=== PATIENT | female | born 1990 | race Caucasian/White ===

== ENCOUNTER 2017-01-09 01:08 | Inpatient (IN) | payer OTHER, MEDICAID ==
[2017-01-09] VITALS (77 sets, daily range): BP systolic 88–144; BP diastolic 50–100; PULSE 59–137; RESP 16–20; TEMP 97.5–98.5
[~2017-01-09 01:08] MED LIST: PRENCAP6 PO
[2017-01-09] MEDS ORDERED: LACTATED RINGER'S 1000 ML INJ 1,000 ML IV PRN (01:54)
[2017-01-09] MEDS ORDERED: LACTATED RINGER'S 1000 ML INJ 1,000 ML IV SCH (01:54)
[2017-01-09] MEDS ORDERED: CITRIC ACID-SODIUM CITRATE LIQ 30 ML UDC PO SCH (02:00)
[2017-01-09] MEDS ORDERED: MINERAL OIL 10 ML VIAL TOPICAL PRN (02:00)
[2017-01-09] MEDS ORDERED: LIDOCAINE HCL 1% 50 ML VIAL I-DERMAL PRN (02:00)
[2017-01-09] MEDS ORDERED: SODIUM CHLORID 0.9% 500 ML INJ 500 ML IV PRN (02:00)
[2017-01-09] MEDS ORDERED: ONDANSETRON HCL 4 MG/2 ML VIAL IV PRN (02:00)
[2017-01-09] MEDS ORDERED: OXYTOCIN 30 UNITS-500ML PREMIX 500 ML IV ONE ×2 (02:00→15:15)
[2017-01-09] MEDS ORDERED: LIDOCAINE HCL 1% 50 ML VIAL INFIL PRN (02:00)
[2017-01-09] MEDS ORDERED: SODIUM CHLOR 0.9% 1000 ML INJ 1,000 ML IV PRN (02:14)
[2017-01-09 03:00] LABS: BASOPHIL % 0.3 % (0.0-2.0); EOSINOPHIL # 0.1 TH/MM3 (0-0.4); EOSINOPHIL % 0.9 % (0.0-4.0); HEMATOCRIT 36.1 % (35.0-46.0); HEMO FLAGS DIFF FINAL; LYMPH % 17.1 % (9.0-44.0); LYMPHOCYTE # 1.6 TH/MM3 (1.0-4.8); MEAN CELL VOLUME 94.9 FL (80.0-100.0); MEAN CORPUSCULAR HEMOGLOBIN 33.3 PG (27.0-34.0); MEAN CORPUSCULAR HGB CONC 35.1 % (32.0-36.0); MONO % 7.7 % (0.0-8.0); PLATELET COUNT 155 TH/MM3 (150-450); RED CELL DISTRIBUTION WIDTH 12.7 % (11.6-17.2); WHITE BLOOD COUNT 9.4 TH/MM3 (4.0-11.0)
[2017-01-09 03:09] LABS: BLOOD, URINE SMALL (NEG); COMMENT (UR) CULTURE INDICATED; CULTURE IF INDICATED CULTURE INDICATED; GLUCOSE,URINE NEG (NEG); KETONE, URINE NEG (NEG); MUCUS URINE FEW /lpf (OCC); NITRITE,URINE NEG (NEG); PH, URINE 6.5 (5.0-8.5); SQUAMOUS EPITHELIAL CELL URINE 53 /hpf (0-5); URINE COLOR YELLOW (YELLW/STRAW)
--- NOTE | 2017-01-09 03:51 | HHI.HP ---
HPI Travel History International Travel<30 Days: No Contact w/Intl Traveler<30Days: No Known Affected Area: No History of Present Illness HPI This patient is a 26-year-old 3 para 1011 EDC is January 05 presently at 40 weeks and 4 days she presents with the chief complaint of spontaneous rupture of membranes subsequent onset of contractions care with Dr Mcnally course is significant for a history of low-grade PRINCE with positive HPV baseline blood pressure 118/64 Blood type is O+ rubella immune VDRL is nonreactive urine culture is negative hepatitis is negative HIV negative GC chlamydia negative one-hour Glucola of 58 last hemoglobin 12.2 hematocrit 36.2 History Past Medical History Narrative Medical No known drug allergies No major medical problems Obstetric History Obstetric History May 2015 D&C at 8 weeks for missed Ab September 08, 2014 vaginal delivery 7 lbs. 13 oz. female uncomplicated Past Surgical History Narrative Surgical D&C Family History Narrative Family History Grandfather with heart disease Social History Alcohol Use: No Tobacco Use: No Substance Abuse: No Allergies-Medications (Allergen,Severity, Reaction): Coded Allergies: No Known Allergies (Verified , 01/23/14) Home Meds Reported Medications Mv & Min W/Fe Fumarat ( 1) Cap1 Cap PO DAILY 01/23/14 Review of Systems Gastrointestinal: Abdominal Pain Genitourinary: Other Physical Exam Vital Signs Date Time Temp Pulse Resp B/P Pulse Ox O2 Delivery O2 Flow Rate FiO2 01/09/17 02:30 98.3 18 01/09/17 02:26 72 121/72 Narrative GENERAL: Well-nourished, well-developed patient. Alert oriented 3 and cooperative in no acute distress CARDIOVASCULAR: Regular rate and rhythm without murmurs, gallops, or rubs. RESPIRATORY: Breath sounds equal bilaterally. No accessory muscle use. ABDOMEN/GI: Gravid term estimated weight 7-1/2 pounds Gravid to [-] weeks size term Fundal Height: [-] GENITOURINARY: External Genitalia: intact and normal in appearance BUS glands: [-] Cervix: [-] Posterior soft Dilatation: [-] 3 cm Effacement: [-] 90% effaced Station: [-] -1 station Presentation: [-] Vertex Membranes: ruptured] Uterine Contractions: [-] Every 2-3 minute FHT's: Category: [-] 1 Baseline: [-] 140 Reactive: [-] + Variability: [-] Moderate Decels: [-] 0 EXTREMITIES: No cyanosis or edema. NEUROLOGICAL: Awake and alert. Motor and sensory grossly within normal limits. Five out of 5 muscle strength in all muscle groups. Normal speech. Data Data Vital Signs Reviewed: Yes (blood pressure 121/72 pulse 72 respiration 18 temperature is 98.3) Orders Ob (2e) Additional Admit Info (01/09/17 01:51) Admit To Inpatient (01/09/17 ) Code Status (01/09/17 01:54) Vital Signs (Adult) .Per protocol (01/09/17 01:54) ^ Heart (01/09/17:54) ^ Amnioinfusion (01/09/17 01:54) Urinary Catheter Management .ONCE (01/09/17 01:54) Diet Liquid (01/09/17 Breakfast) Lactated Ringer's 1000 Ml Inj (Lr 1000 M (01/09/17 01:54) Lactated Ringer's 1000 Ml Inj (Lr 1000 M (01/09/17 01:54) Sodium Chlorid 0.9% 500 Ml Inj (Ns 500 M (01/09/17 02:00) Sodium Chlor 0.9% 1000 Ml Inj (Ns 1000 M (01/09/17 02:14) Lidocaine 1% Inj (50 Ml) (Xylocaine 1% I (01/09/17 02:00) Citric Acid-Sodium Citrate Liq (Bicitra (01/09/17 02:00) Ondansetron Inj (Zofran Inj) (01/09/17 02:00) Fentanyl Inj (Fentanyl Inj) (01/09/17 02:00) Fentanyl Inj (Fentanyl Inj) (01/09/17 02:00) Complete Blood Count With Diff (01/09/17 01:54) Hold Clot (01/09/17 01:54) Abo/Rh Blood Type (01/09/17 01:54) Urinalysis - C+S If Indicated (01/09/17 01:54) Resp Oxygen Non Rebreathe Mask (01/09/17 ) ^ Epidural / Intrathecal Infus (01/09/17 01:54) Oxytocin 30 Units-500ml Premix (Pitocin (01/09/17 02:00) Lidocaine 1% Inj (50 Ml) (Xylocaine 1% I (01/09/17 02:00) Light Mineral Oil (Muri-Lube Oil) (01/09/17 02:00) Urine Culture (01/09/17 01:30) Labs Laboratory Tests Test 01/09/17 01/09/17 01:30 02:20 Urine Color YELLOW Urine Turbidity CLOUDY Urine pH 6.5 Urine Specific [place] 1.016 Urine Protein TRACE Urine Glucose (UA) NEG Urine Ketones NEG Urine Occult Blood SMALL Urine Nitrite NEG Urine Bilirubin NEG Urine Urobilinogen LESS THAN 2.0 Urine Leukocyte Esterase LARGE Urine RBC 10 Urine WBC 85 Urine WBC Clumps FEW Urine Squamous Epithelial 53 Cells Urine Mucus FEW Microscopic Urinalysis Comment CULTURE INDICATED White Blood Count 9.4 Red Blood Count 3.80 Hemoglobin 12.7 Hematocrit 36.1 Mean Corpuscular Volume 94.9 Mean Corpuscular Hemoglobin 33.3 Mean Corpuscular Hemoglobin 35.1 Concent Red Cell Distribution Width 12.7 Platelet Count 155 Mean Platelet Volume 10.2 Neutrophils (%) (Auto) 74.0 Lymphocytes (%) (Auto) 17.1 Monocytes (%) (Auto) 7.7 Eosinophils (%) (Auto) 0.9 Basophils (%) (Auto) 0.3 Neutrophils # (Auto) 7.0 Lymphocytes # (Auto) 1.6 Monocytes # (Auto) 0.7 Eosinophils # (Auto) 0.1 Basophils # (Auto) 0.0 CBC Comment DIFF FINAL Differential Comment Date/Time Procedure Status Source Growth 01/09/17 01:30 Urine Culture Received Urine Clean Catch Pending Assessment/Plan Assessment and Plan Intrauterine at 40 weeks and 4 days Postdate Premature rupture membrane Latent phase labor Group B strep negative per patient Plan; admit to Dr Mcnally External monitoring IV fluid hydration CBC type and screen Pain management if patient requires Anticipate vaginal delivery Sophia Valle MD Jan 09, 2017 03:51
[2017-01-09] MEDS ORDERED: OXYTOCIN 30 UNITS/NS 500ML PREMIX IV SCH (05:30)
--- NOTE | 2017-01-09 08:09 | PD.LABORPN ---
Subjective Subjective pt comfortable w/o epidural, on low dose pit 2mu Objective Vital Signs Vital Signs Date Time Temp Pulse Resp B/P Pulse Ox O2 Delivery O2 Flow Rate FiO2 01/09/17 07:54 69 123/69 01/09/17 07:45 16 01/09/17 07:30 77 109/57 01/09/17 07:15 98.5 16 01/09/17 07:00 75 109/68 01/09/17 06:30 91 111/71 01/09/17 06:28 18 01/09/17 06:26 76 117/89 01/09/17 06:22 77 114/68 01/09/17 05:10 91 114/71 01/09/17 05:09 98.0 01/09/17 05:09 18 01/09/17 02:30 98.3 18 01/09/17 02:26 72 121/72 Objective Pelvic Exam: Cervix: [-] Dilatation: [-] 3 Effacement: [-] 90 Station: [-] -1 Presentation: [-] vtx Membranes: [intact or ruptured] arom, clear Uterine Contractions: [-] irreg FHT's: Category: [-] 1 Baseline: [-] Reactive: [-] R Variability: [-] Decels: [-] Assessment/Plan Problem List: (1) state, incidental Assessment and Plan IUP at 40+ wks SROM, AROM on pit 2mu GBBS neg anticipate Lo Lo MD Jan 09, 2017 08:09
[2017-01-09] MEDS ORDERED: ePHEDrine/NS 25 MG/5 ML SYR ONE (11:24)
[2017-01-09] MEDS ORDERED: fentaNYL 2MCG-BUPIV 0.125% INJ 100 ML ONE (11:24)
--- NOTE | 2017-01-09 14:08 | PD.LABORPN ---
Subjective Subjective OBHG Note OB Hospitalist requested to standby for delivery; presented to room as per nurse request. Upon my arrival, bradycardia noted with patient in R lateral position, FSE noting FHR in 40s-60s range. Patient was examined and noted to be C/C/+2, FHR remained bradycardic despite repositioning. Patient verbally consented for VAVD with RBA discussed including but not limited to / injury, intracranial bleeding, scalp hematoma, and need for emergent C/S. Due to prolonged bradycardia the vacuum was applied in insufflated to the green zone; the vacuum was noted to be free of maternal tissues. heart tones were noted to improve after one pull so vacuum device was removed; Dr. Lo arrived to room at this time, was given report about the prolonged bradycardia, and improved FHR and assumed care for the patient. The patient subsequently delivered via a with APGARs 8/9. Objective Vital Signs Vital Signs Date Time Temp Pulse Resp B/P Pulse Ox O2 Delivery O2 Flow Rate FiO2 01/09/17 13:45 137 126/100 01/09/17 13:25 94 01/09/17 13:20 81 01/09/17 13:15 87 108/67 01/09/17 13:15 87 01/09/17 13:10 90 01/09/17 13:05 91 01/09/17 13:00 97.5 18 01/09/17 13:00 84 01/09/17 13:00 92 102/54 01/09/17 12:55 75 01/09/17 12:50 72 01/09/17 12:45 80 01/09/17 12:45 76 92/58 01/09/17 12:40 75 01/09/17 12:35 73 01/09/17 12:32 72 90/50 01/09/17 12:30 75 01/09/17 12:30 83 88/63 01/09/17 12:25 71 01/09/17 12:20 70 01/09/17 12:15 70 01/09/17 12:15 73 117/66 01/09/17 12:10 71 01/09/17 12:05 74 01/09/17 12:00 70 124/69 01/09/17 12:00 71 01/09/17 11:55 63 01/09/17 11:55 69 125/73 01/09/17 11:50 69 123/68 01/09/17 11:50 71 01/09/17 11:45 72 01/09/17 11:45 74 125/77 01/09/17 11:35 70 16 01/09/17 11:30 73 138/92 01/09/17 11:25 64 01/09/17 11:20 69 01/09/17 11:17 68 126/74 01/09/17 11:15 16 01/09/17 11:00 59 116/70 01/09/17 10:45 97.8 16 01/09/17 10:30 61 103/56 01/09/17 10:15 16 01/09/17 10:00 115/70 01/09/17 10:00 70 01/09/17 09:45 16 01/09/17 09:30 70 128/76 01/09/17 09:15 98.5 01/09/17 09:15 16 01/09/17 09:00 74 113/65 01/09/17 08:45 16 01/09/17 08:30 69 117/74 01/09/17 08:15 16 01/09/17 08:00 69 120/53 01/09/17 07:54 69 123/69 01/09/17 07:45 16 01/09/17 07:30 77 109/57 01/09/17 07:15 98.5 16 01/09/17 07:00 75 109/68 01/09/17 06:30 91 111/71 01/09/17 06:28 18 01/09/17 06:26 76 117/89 01/09/17 06:22 77 114/68 Objective Pelvic Exam: Cervix: [-] Dilatation: [-] Effacement: [-] Station: [-] Presentation: [-] Membranes: [intact or ruptured] Uterine Contractions: [-] FHT's: Category: [-] Baseline: [-] Reactive: [-] Variability: [-] Decels: [-] Assessment/Plan Problem List: (1) state, incidental Esthela Phillip MD Jan 09, 2017 14:08
--- NOTE | 2017-01-09 15:01 | PD.OB.DELI ---
Anesthesia: Epidural Episiotomy: None Vaginal Delivery: Normal (1 vacuum pull by hospitalist during deceleration which recovered) Presentation: Occiput anterior Nuchal Cord: x1 : Male Care: Suctioned Placenta: Spontaneous delivery Laceration: No lacerations Lo Lo MD Jan 09, 2017 15:00
[2017-01-09] MEDS ORDERED: ALUMINUM/MAGNESIUM/SIMETH 30 ML CUP PO PRN (15:15)
[2017-01-09] MEDS ORDERED: WITCH HAZEL 50%/GLYCERIN 12.5% 40 PAD JAR TOPICAL PRN (15:15)
[2017-01-09] MEDS ORDERED: ACETAMINOPHEN 325 MG TAB PO PRN (15:15)
[2017-01-09] MEDS ORDERED: SODIUM CHLORIDE 0.9% FLUSH 10 ML FLUSH IV FLUSH PRN (15:15)
[2017-01-09] MEDS ORDERED: ONDANSETRON ODT 4 MG TAB PO PRN (15:15)
[2017-01-09] MEDS ORDERED: DOCUSATE SODIUM 50 MG/SENNA 8.6 MG TAB PO PRN (15:15)
[2017-01-09] MEDS ORDERED: BENZOCAINE 20% TOPICAL SPRAY 60 ML CAN TOPICAL PRN (15:15)
[2017-01-09] MEDS: oxyCODONE/ACETAMINOPHEN 5 MG/325 MG TAB PO PRN (15:33)
[2017-01-09] MEDS: IBUPROFEN 600 MG TAB PO PRN ×2 (15:33→21:33)
[2017-01-09] MEDS ORDERED: DIPHTH/TETANUS/ACEL PERTUSSIS (BOOSTER) 0.5 ML VIAL/PFS IM ONE (16:00)
[2017-01-09] MEDS ORDERED: MEASLES, MUMPS, RUBELLA VACCINE 0.5 ML VIAL SQ ONE (16:00)
[2017-01-09] MEDS ORDERED: SODIUM CHLORIDE 0.9% FLUSH 10 ML FLUSH IV FLUSH SCH (21:00)
[2017-01-09] MEDS ORDERED: ZOLPIDEM TARTRATE 5 MG TAB PO PRN (21:00)
[2017-01-10] MEDS: IBUPROFEN 600 MG TAB PO PRN ×2 (03:44→10:17)
[2017-01-10] MEDS: oxyCODONE/ACETAMINOPHEN 5 MG/325 MG TAB PO PRN ×3 (03:45→15:09)
[2017-01-10 08:20] VITALS: BP 111/72; PULSE 73; RESP 18; TEMP 97.5
--- NOTE | 2017-01-10 09:25 | HHI.OB ---
Subjective Post Day: 1 Remarks no complaints , Objective Vitals/I&O Vital Signs Date Time Temp Pulse Resp B/P Pulse Ox O2 Delivery O2 Flow Rate FiO2 01/09/17 19:18 98.1 84 16 109/69 01/09/17 18:00 18 01/09/17 16:43 20 01/09/17 16:30 65 104/57 01/09/17 16:15 71 109/51 01/09/17 16:10 16 01/09/17 16:00 79 102/55 01/09/17 15:47 16 01/09/17 15:46 80 109/50 01/09/17 15:30 72 111/63 01/09/17 15:25 16 01/09/17 15:15 75 104/59 01/09/17 15:00 85 111/57 01/09/17 14:55 98.5 01/09/17 14:55 16 01/09/17 14:46 131 92/71 01/09/17 14:31 111 126/64 01/09/17 14:30 16 01/09/17 14:16 132 144/65 01/09/17 14:15 100 01/09/17 14:00 16 01/09/17 13:45 137 126/100 01/09/17 13:25 94 01/09/17 13:20 81 01/09/17 13:15 87 108/67 01/09/17 13:15 87 01/09/17 13:10 90 01/09/17 13:05 91 01/09/17 13:00 97.5 18 01/09/17 13:00 84 01/09/17 13:00 92 102/54 01/09/17 12:55 75 01/09/17 12:50 72 01/09/17 12:45 80 01/09/17 12:45 76 92/58 01/09/17 12:40 75 01/09/17 12:35 73 01/09/17 12:32 72 90/50 01/09/17 12:30 75 01/09/17 12:30 83 88/63 01/09/17 12:25 71 01/09/17 12:20 70 01/09/17 12:15 70 01/09/17 12:15 73 117/66 01/09/17 12:10 71 01/09/17 12:05 74 01/09/17 12:00 70 124/69 01/09/17 12:00 71 01/09/17 11:55 63 01/09/17 11:55 69 125/73 01/09/17 11:50 69 123/68 01/09/17 11:50 71 01/09/17 11:45 72 01/09/17 11:45 74 125/77 01/09/17 11:40 67 01/09/17 11:40 77 117/79 01/09/17 11:38 69 107/92 01/09/17 11:35 70 16 01/09/17 11:30 73 138/92 01/09/17 11:25 64 01/09/17 11:20 69 01/09/17 11:17 68 126/74 01/09/17 11:15 16 01/09/17 11:00 59 116/70 01/09/17 10:45 97.8 16 01/09/17 10:30 61 103/56 01/09/17 10:15 16 01/09/17 10:00 115/70 01/09/17 10:00 70 01/09/17 09:45 16 01/09/17 09:30 70 128/76 Objective Remarks GENERAL: Well-nourished, well-developed patient. CARDIOVASCULAR: Regular rate and rhythm without murmurs, gallops, or rubs. RESPIRATORY: Breath sounds equal bilaterally. No accessory muscle use. ABDOMEN/GI: Abdomen soft, non-tender. Fundus: Firm, non-tender at umbilicus. GENITOURINARY: Light to moderate bleeding. EXTREMITIES: No cyanosis or edema, non-tender, without signs of DVT. Medications and IVs Current Medications Medications (Trade) Dose Ordered Sig/Chinedu Route Start Time Stop Time Status Last Admin (NS Flush) 2 ml BID IV FLUSH 01/09/17 21:00 (NS Flush) 2 ml UNSCH PRN IV FLUSH 01/09/17 15:15 (Tylenol) 650 mg Q4H PRN PO 01/09/17 15:15 01/09/17 20:09 (Motrin) 600 mg Q6H PRN PO 01/09/17 15:15 01/10/17 03:44 (Percocet 5-325 Mg) 1 tab Q4H PRN PO 01/09/17 15:15 01/10/17 03:45 (Americaine 20% Top Spr) 1 spray Q4H PRN TOPICAL 01/09/17 15:15 01/09/17 17:52 (Tucks Pads) 1 applic QID PRN TOPICAL 01/09/17 15:15 01/09/17 17:52 (Kelly-Colace) 2 tab Q12H PRN PO 01/09/17 15:15 (Ambien) 5 mg HS PRN PO 01/09/17 21:00 (Mag-Al Plus Susp Liq) 15 ml Q8H PRN PO 01/09/17 15:15 (Zofran Odt) 4 mg Q6H PRN PO 01/09/17 15:15 Assessment/Plan Problem List: (1) state, incidental (2) Vaginal delivery Assessment and Plan Intrauterine at 40 weeks and 4 days s/p PPD#1 doing well Discharge Planning routine Attending Attestation pt seen by Lo Jones MD Jan 10, 2017 09:25
[2017-01-10] MEDS ORDERED: IBUP-232 PO (10:29)
--- NOTE | 2017-01-10 10:30 | HHI.DCPOC ---
Discharge Care Plan Your Health Problems Are: Pelvic pain Report Symptoms to Your Doctor -Temperate above 100.5 degrees -Redness, of incision or excessive or foul smelling drainage -Unusual pain or calf pain -Increased vaginal bleeding -Painful or difficulty urinating -Feelings of extreme sadness or anxiety after 2 weeks Goals to Promote Your Health * To prevent worsening of your condition and complications * To maintain your health at the optimal level Directions to Meet Your Goals Take your medications as prescribed Follow your dietary instruction Follow activity as directed Ensure plenty of rest for recovery Drink fluids for hydration Keep your appointments as scheduled Take your immunizations and boosters as scheduled If your symptoms worsen call your PCP, if no PCP go to Urgent Care Center or Emergency Room Smoking is Dangerous to Your Health. Avoid second hand smoke Call the 24-hour crisis hotline for domestic abuse at Lo Lo MD Jan 10, 2017 10:29
== END 2017-01-10 19:42 | disposition home or self-care (01) | DRG 775 ==
LOC: HOBED 01:08 → H2EA 01:52 → H1EA 17:43
PROVIDERS: ADMIT Obstetrics & Gynecology; ATTEND Obstetrics & Gynecology
PROC: 10D07Z6 Extraction of Products of Conception, Vacuum, Via Natural or Artificial Opening (ICD-10-PCS; principal; 2017-01-09)
PROC: 10E0XZZ Delivery of Products of Conception, External Approach (ICD-10-PCS; 2017-01-09)
PROC: 00HU33Z Insertion of Infusion Device into Spinal Canal, Percutaneous Approach (ICD-10-PCS; 2017-01-09)
PROC: 3E0R3CZ (ICD-10-PCS; 2017-01-09)
DX: O48.0 Post-term pregnancy (principal); O42.02 Full-term premature rupture of membranes, onset of labor within 24 hours of rupture; O76 Abnormality in fetal heart rate and rhythm complicating labor and delivery; O69.81X0 Labor and delivery complicated by cord around neck, without compression, not applicable or unspecified; O66.5 Attempted application of vacuum extractor and forceps; Z3A.40 40 weeks gestation of pregnancy; Z37.0 Single live birth
CPT/HCPCS: 81001; 84112; 85025; 86900; 86901; 87086; 99285; J2590; J7120